=== PATIENT | female | born 1985 | race Caucasian/White ===

== ENCOUNTER 2017-03-29 19:30 | Emergency (ER) | payer MEDICAID ==
[~2017-03-29] VITALS: Ht 165.1 cm; Wt 67.9 kg
[~2017-03-29 19:30] MED LIST: IBUP-1222 PO; OXYC-302 PO; PREN1TAB27 PO
[2017-03-29 19:31] VITALS: BP 125/85
== END 2017-03-29 19:54 | disposition home or self-care (01) ==
LOC: ED 19:48
DX: L02.01 Cutaneous abscess of face (principal); F17.210 Nicotine dependence, cigarettes, uncomplicated
CPT/HCPCS: 99283

== ENCOUNTER 2018-05-18 21:41 | Inpatient (IN) | payer MEDICAID ==
[~2018-05-18] VITALS: Ht 165.1 cm; Wt 81.8 kg
[2018-05-18 21:29] VITALS: BP 132/72
[2018-05-18 23:06] LABS: AMPHETAMINE SCREEN, URINE Negative (Negative); BARBITURATE SCREEN, URINE Negative (Negative); BENZODIAZEPINE SCREEN, URINE Negative (Negative); CANNABINOID SCREEN, URINE Positive (Negative); COCAINE SCREEN, URINE Negative (Negative); METHADONE SCREEN, URINE Negative (Negative); OPIATE SCREEN, URINE Negative (Negative)
[2018-05-18] MEDS ORDERED: OXYTOCIN 30U/ 0.9% NaCL 500ML 500 ML IV ONE (23:15)
[2018-05-18] MEDS: D5%-LACTATED RINGERS 1,000 ML IV SCH (23:15)
[2018-05-18] MEDS: LACTATED RINGERS 1,000 ML IV SCH (23:15)
[2018-05-18] MEDS ORDERED: OXYTOCIN 30U/ 0.9% NaCL 500ML 500 ML ONE (23:18)
[2018-05-18] MEDS ORDERED: FENTANYL PF 100 MCG/2ML ONE (23:24)
[2018-05-18] MEDS ORDERED: TERBUTALINE 1 MG/ML, 1ML ONE (23:28)
[2018-05-18] MEDS ORDERED: PENICILLIN GK 5,000,000 UNITS in DEXTROSE 5% 100 ML IVPB ONE (23:30)
[2018-05-18] MEDS ORDERED: ONDANSETRON 2MG/ML, 2ML IVPush PRN (23:30)
[2018-05-18] MEDS ORDERED: FENTANYL PF 100 MCG/2ML IV PRN (23:30)
[2018-05-18] MEDS ORDERED: CALCIUM CARBONATE 500 MG TAB.CHEW PO PRN (23:30)
[2018-05-18] MEDS: FENTANYL PF 100 MCG/2ML IVPush PRN (23:30)
[2018-05-18] MEDS ORDERED: METOCLOPRAMIDE 5 MG/ML, 2ML IVPush PRN (23:30)
[2018-05-18] MEDS ORDERED: SODIUM CITRATE/CITRIC ACID 30 ML UDC PO PRN (23:30)
[2018-05-18] MEDS ORDERED: TERBUTALINE 1 MG/ML, 1ML IVPush PRN (23:30)
[2018-05-18 23:38] LABS: BASOPHILS % (AUTO) 0 % (0-1); EOSINOPHILS # (AUTO) 0.08 x10^3/uL (0-0.4); EOSINOPHILS % (AUTO) 1 % (1-7); LYMPHOCYTES # (AUTO) 0.77 x10^3/uL (1-3.4); LYMPHOCYTES % (AUTO) 8 % (22-44); MD NO; MEAN CORPUSCULAR HEMOGLOBIN 30.7 pg (27.0-34.8); MEAN CORPUSCULAR HGB CONC 34.3 g/dL (32.4-35.8); MEAN CORPUSCULAR VOLUME 89.5 fL (80-100); MEAN PLATELET VOLUME 9.7 fL (7.4-10.4); MONOCYTES # (AUTO) 0.41 x10^3/uL (0.2-0.8); MONOCYTES % (AUTO) 4 % (2-9); NEUTROPHILS # (AUTO) 8.54 x10^3/uL (1.8-6.8); NEUTROPHILS % (AUTO) 87 % (42-75); PLATELET COUNT 193 x10^3/uL (130-400); RED CELL DISTRIBUTION WIDTH 13.5 % (9.6-15.2)
[2018-05-18 23:46] LABS: MICROSCOPIC INDICATED
[2018-05-19] MEDS ORDERED: FENTANYL PF 100 MCG/2ML ONE (00:38)
[2018-05-19] MEDS ORDERED: BUPIVACAINE 0.25% ONE (00:51)
[2018-05-19] MEDS: LACTATED RINGERS 1,000 ML IV SCH ×4 (01:05→15:15)
[2018-05-19] MEDS ORDERED: FENTANYL/BUPIV./NS/PF 250 ML EPIDCONT SCH ×2 (01:10→01:11)
[2018-05-19] MEDS ORDERED: EPHEDRINE 50 MG/ML, 1ML IVPush PRN (01:30)
[2018-05-19] MEDS ORDERED: FENTANYL PF 500 MCG, BUPIVACAINE/PF 0.5%, 30ML 62.5 ML in SODIUM CHLORIDE 0.9% 177.5 ML EPIDCONT SCH (01:30)
[2018-05-19] MEDS ORDERED: LACTATED RINGERS 1,000 ML IVBOLUS PRN (01:30)
[2018-05-19 03:04] LABS: AMPHETAMINE SCREEN, URINE Negative (Negative); BARBITURATE SCREEN, URINE Negative (Negative); BENZODIAZEPINE SCREEN, URINE Negative (Negative); CANNABINOID SCREEN, URINE Positive (Negative); COCAINE SCREEN, URINE Negative (Negative); METHADONE SCREEN, URINE Negative (Negative); OPIATE SCREEN, URINE Negative (Negative)
[2018-05-19] MEDS: PENICILLIN GK 2,500,000 UNITS in DEXTROSE 5% 100 ML IVPB SCH ×4 (04:00→15:30)
[2018-05-19] MEDS: OXYTOCIN 30U/ 0.9% NaCL 500ML 500 ML IV SCH ×15 (05:32→22:44)
[2018-05-19] MEDS ORDERED: OXYTOCIN 30U/ 0.9% NaCL 500ML 500 ML ONE (05:55)
[2018-05-19] MEDS ORDERED: ACETAMINOPHEN 325 MG TABLET PO PRN ×3 (06:00)
[2018-05-19] MEDS ORDERED: CALCIUM CARBONATE 500 MG TAB.CHEW PO PRN (06:00)
[2018-05-19] MEDS ORDERED: HYDROcodone/APAP 5/325 TABLET PO PRN ×2 (06:00)
[2018-05-19] MEDS ORDERED: MISOPROSTOL 200 MCG TABLET PR PRN (06:00)
[2018-05-19] MEDS ORDERED: ONDANSETRON 2MG/ML, 2ML IV PRN (06:00)
[2018-05-19] MEDS ORDERED: BISACODYL 10 MG SUPP PR PRN (06:00)
[2018-05-19] MEDS: D5%-LACTATED RINGERS 1,000 ML IV SCH ×2 (07:15→15:15)
[2018-05-19 08:25] VITALS: BP 121/76
[2018-05-19] MEDS: IBUPROFEN 600 MG TABLET PO PRN ×2 (08:32→21:22)
[2018-05-19] MEDS: PRENATAL VIT/IRON/FA 1 EACH TABLET PO SCH (08:32)
[2018-05-19 08:55] VITALS: BP 101/61
[2018-05-19 12:30] VITALS: BP 128/71
[2018-05-19 13:44] LABS: BASOPHILS # (AUTO) 0.01 x10^3/uL (0-0.1); BASOPHILS % (AUTO) 0 % (0-1); EOSINOPHILS # (AUTO) 0.02 x10^3/uL (0-0.4); EOSINOPHILS % (AUTO) 0 % (1-7); LYMPHOCYTES # (AUTO) 0.69 x10^3/uL (1-3.4); LYMPHOCYTES % (AUTO) 7 % (22-44); MD NO; MEAN CORPUSCULAR HEMOGLOBIN 31.3 pg (27.0-34.8); MEAN CORPUSCULAR HGB CONC 34.8 g/dL (32.4-35.8); MEAN CORPUSCULAR VOLUME 89.8 fL (80-100); MEAN PLATELET VOLUME 9.7 fL (7.4-10.4); MONOCYTES # (AUTO) 0.51 x10^3/uL (0.2-0.8); MONOCYTES % (AUTO) 5 % (2-9); NEUTROPHILS # (AUTO) 8.39 x10^3/uL (1.8-6.8); NEUTROPHILS % (AUTO) 87 % (42-75); PLATELET COUNT 177 x10^3/uL (130-400); RED BLOOD COUNT 3.85 x10^6/uL (3.82-5.3); RED CELL DISTRIBUTION WIDTH 13.9 % (9.6-15.2)
[2018-05-19] MEDS: FENTANYL PF 100 MCG/2ML IVPush PRN ×5 (15:57→16:02)
[2018-05-19 16:25] VITALS: BP 134/81
[2018-05-19 20:45] VITALS: BP 121/81
[2018-05-19] MEDS: DOCUSATE 100 MG CAPSULE PO PRN (21:22)
[2018-05-20] MEDS: OXYTOCIN 30U/ 0.9% NaCL 500ML 500 ML IV SCH ×2 (01:32→11:32)
[2018-05-20 04:20] VITALS: BP 121/74
[2018-05-20] MEDS: IBUPROFEN 600 MG TABLET PO PRN ×3 (04:29→22:39)
[2018-05-20 07:35] VITALS: BP 109/68
[2018-05-20] MEDS ORDERED: ONDANSETRON ODT 4 MG PO PRN (12:00)
[2018-05-20] MEDS: DOCUSATE 100 MG CAPSULE PO PRN ×2 (12:07→22:39)
[2018-05-20] MEDS: PRENATAL VIT/IRON/FA 1 EACH TABLET PO SCH (12:07)
[2018-05-20 20:00] VITALS: BP 120/78
[2018-05-21] MEDS: PRENATAL VIT/IRON/FA 1 EACH TABLET PO SCH (07:59)
[2018-05-21] MEDS: DOCUSATE 100 MG CAPSULE PO PRN (07:59)
[2018-05-21 08:00] VITALS: BP 146/76
[2018-05-21] MEDS: IBUPROFEN 600 MG TABLET PO PRN (08:03)
== END 2018-05-21 18:45 | disposition home or self-care (01) | DRG 806 ==
LOC: LDOP 21:41 → LDIP 23:16 → 2NW 05-19 08:23
PROVIDERS: ADMIT Obstetrics & Gynecology; ATTEND Obstetrics & Gynecology
PROC: 10E0XZZ Delivery of Products of Conception, External Approach (ICD-10-PCS; principal; 2018-05-19)
PROC: 0HQ9XZZ Repair Perineum Skin, External Approach (ICD-10-PCS; 2018-05-19)
PROC: 3E0R3BZ Introduction of Anesthetic Agent into Spinal Canal, Percutaneous Approach (ICD-10-PCS; 2018-05-19)
PROC: 00HU33Z Insertion of Infusion Device into Spinal Canal, Percutaneous Approach (ICD-10-PCS; 2018-05-19)
DX: O34.211 Maternal care for low transverse scar from previous cesarean delivery (principal); O99.324 Drug use complicating childbirth; Z37.0 Single live birth; O66.0 Obstructed labor due to shoulder dystocia; F12.90 Cannabis use, unspecified, uncomplicated; O76 Abnormality in fetal heart rate and rhythm complicating labor and delivery; O99.824 Streptococcus B carrier state complicating childbirth; Z3A.39 39 weeks gestation of pregnancy; O70.0 First degree perineal laceration during delivery; O69.89X0 Labor and delivery complicated by other cord complications, not applicable or unspecified
CPT/HCPCS: 36415; 80307; 81001; 82803; 85025; 86850; 86900; 87086; 99285; G0378; J2540; J3010; J3490; Q0162; J2590; J3105; J7050; J7120